=== PATIENT | male | born 1995 | race Caucasian/White ===

== ENCOUNTER 2020-03-03 19:07 | Emergency (ER) | payer MEDICAID, SELFPAY ==
[2020-03-03] VITALS (9 sets, daily range): BP systolic 97–166; BP diastolic 50–85; PULSE 74–101; RESP 15–18; TEMP 37.3; O2SAT 96–99; BMI 26.6
--- NOTE | 2020-03-03 19:47 | CT_ITS ---
PROCEDURE: CT ABDOMEN PELVIS W CON CLINICAL INDICATION: abd pain/ bloody stool COMPARISON: No exams were available for comparison TECHNIQUE: IV Contrast: 75ML OPTIRAY 350 Oral Contrast none given Axial images obtained with sagittal and coronal reformats. All CT scans at the facility use one or more dose reduction, viz: automated exposure control, ma/kV adjustment per patient size (including targeted exams where dose is matched to indication, i.e. head), or iterative reconstruction technique. FINDINGS: Lower thorax: The lower lung heredia are clear and there is no pleural fluid. Cardiac size is normal. ABDOMEN: Liver: No masses or biliary dilatation. Gallbladder: The gallbladder is partially contracted but shows no obvious stones. Pancreas: No masses or peripancreatic fluid collections. Spleen: unremarkable Adrenals: unremarkable Kidneys/ureters: The kidneys are normal in size and show symmetrical function both appearing normal. ABDOMEN & PELVIS: Stomach bowel: The stomach is markedly distended with ingested food particles. There are curious focal areas of hyperdensity particularly near the antrum of the stomach and in view the patient's history active GI bleeding cannot be excluded. There are mildly dilated fluid-filled loops of proximal and mid small bowel. The distal small bowel is more normal in caliber but is fluid-filled as well. There are moderately large amount stool in the ascending and transverse colon and in the rectum. The appendix is normal in caliber and partially air-filled. Peritoneum: No abnormal fluid collections. No obvious inflammatory changes. No free air. Lymph nodes: No enlarged lymph nodes apparent. Vasculature: No evidence of abdominal aortic aneurysm. No retroperitoneal hemorrhage evident. Bones: No acute fracture PELVIS: Reproductive: unremarkable Bladder: The urinary bladder is moderately distended with urine and appears normal, the prostate is normal in size. Appendix: Unremarkable. No distention or periappendiceal phlegmonous change. IMPRESSION: 1. Stomach markedly distended with ingested food particles with focal areas of hyperdensity suggesting the possibility of active bleeding in view the patient's history 2. Findings consistent with gastroenteritis with mildly dilated fluid-filled loops of small bowel Dictated by: Dr. Chadd Bae MD 03/04/2020 08:27 Dr. Chadd Bae MD in [facility] 03/04/2020 08:27
[2020-03-03 19:53] LABS: Basophils # 0.1 K/mm3 (0-0.2); Basophils % 0.7 % (0.1-2.0); Eosinophils # 0.3 K/mm3 (0.0-0.4); Eosinophils % 3.4 % (0.1-12.0); Hematocrit 41.5 % (42.0-52.0); Hemoglobin 15.1 g/dL (14.1-18.0); Lymphocytes # 2.8 K/mm3 (0.7-4.5); Lymphocytes % 33.6 % (10-50); Mean Corpuscular HGB Conc 36.3 g/dL (31.8-35.4); Mean Corpuscular Volume 90.9 fl (80-94); Mean Platelet Volume 9.7 fl (7.4-10.4); Monocytes # 0.9 K/mm3 (0.1-1.0); Neutrophils # 4.3 K/mm3 (1.8-7.8); Neutrophils % 51.2 % (37.0-80.0); Platelet Count 227 K/mm3 (142-424); Red Blood Count 4.56 M/mm3 (4.60-6.20); Red Cell Distribution Width 14.6 % (11.5-17.5); White Blood Count 8.4 K/mm3 (4.8-10.8)
--- NOTE | 2020-03-03 19:53 | PC.NURSE ---
patient placed in gown, and informed of plan of care
--- NOTE | 2020-03-03 19:53 | [facility].EDABDPAI ---
ED Disposition Clinical Impression: Upper GI bleed Disposition: Xfer Critical Access Hosp Condition on Discharge: Good Instructions: DI for Acute Abdomen Referrals: PCP,No [Primary Care Provider] - - Critical Care Critical Care Time: No Attestation: On , the high probability of a clinically significant, sudden or life threatening deterioration of the following system(s) required my full and direct attention, intervention and personal management. The time I documented below is in addition to time spent performing reported procedures but includes the following listed in this critical care notation. Medical Decision Making - [facility] Inquiry Pt receiving controlled substance: No Vital Signs: 03/03/20 19:08 03/03/20 19:25 03/03/20 20:31 Temperature 99.1 F 99.1 F Temperature Source Oral Oral Pulse Rate [Right Brachial] 98 H 101 H 85 Respiratory Rate 15 15 Blood Pressure [Right Arm] 166/85 H 166/85 H 129/68 Blood Pressure Mean [Right Arm] 112 112 88 Blood Pressure Source [Right Arm] Blood Pressure Position [Right Arm] 02 Sat by Pulse Oximetry 98 98 96 Oxygen Delivery Method Room Air 03/03/20 20:59 03/03/20 21:28 03/03/20 22:00 Temperature Temperature Source Pulse Rate [Right Brachial] 85 74 90 Respiratory Rate 18 Blood Pressure [Right Arm] 116/53 L 117/75 139/81 Blood Pressure Mean [Right Arm] 74 89 100 Blood Pressure Source [Right Arm] Automatic Cuff Blood Pressure Position [Right Arm] Supine 02 Sat by Pulse Oximetry 96 98 99 Oxygen Delivery Method Room Air Room Air 03/03/20 22:30 03/03/20 23:00 03/03/20 23:30 Temperature Temperature Source Pulse Rate [Right Brachial] 84 78 74 Respiratory Rate 17 18 17 Blood Pressure [Right Arm] 118/62 132/57 L 97/50 L Blood Pressure Mean [Right Arm] 80 82 65 Blood Pressure Source [Right Arm] Automatic Cuff Automatic Cuff Automatic Cuff Blood Pressure Position [Right Arm] Supine Supine Supine 02 Sat by Pulse Oximetry 99 98 98 Oxygen Delivery Method Room Air Room Air Room Air 03/04/20 00:00 03/04/20 00:30 03/04/20 01:52 Temperature Temperature Source Pulse Rate [Right Brachial] 72 72 76 Respiratory Rate 17 17 16 Blood Pressure [Right Arm] 121/61 113/55 L 97/46 L Blood Pressure Mean [Right Arm] 81 74 63 Blood Pressure Source [Right Arm] Automatic Cuff Automatic Cuff Automatic Cuff Blood Pressure Position [Right Arm] Supine Supine Supine 02 Sat by Pulse Oximetry 95 97 95 Oxygen Delivery Method Room Air Room Air Room Air 03/04/20 02:48 03/04/20 03:42 03/04/20 04:00 Temperature Temperature Source Pulse Rate [Right Brachial] 65 75 68 Respiratory Rate 16 16 17 Blood Pressure [Right Arm] 113/69 121/55 L 137/59 L Blood Pressure Mean [Right Arm] 83 77 85 Blood Pressure Source [Right Arm] Automatic Cuff Automatic Cuff Automatic Cuff Blood Pressure Position [Right Arm] Supine Supine Supine 02 Sat by Pulse Oximetry 96 96 98 Oxygen Delivery Method Room Air Room Air Room Air 03/04/20 04:30 03/04/20 05:00 03/04/20 05:30 Temperature Temperature Source Pulse Rate [Right Brachial] 62 57 L 78 Respiratory Rate 17 17 17 Blood Pressure [Right Arm] 136/67 141/52 H 141/40 H Blood Pressure Mean [Right Arm] 90 81 73 Blood Pressure Source [Right Arm] Automatic Cuff Automatic Cuff Blood Pressure Position [Right Arm] Supine Supine 02 Sat by Pulse Oximetry 97 97 98 Oxygen Delivery Method Room Air Room Air 03/04/20 06:00 03/04/20 06:30 Temperature Temperature Source Pulse Rate [Right Brachial] 72 62 Respiratory Rate 16 17 Blood Pressure [Right Arm] 157/60 H 134/56 L Blood Pressure Mean [Right Arm] 92 82 Blood Pressure Source [Right Arm] Automatic Cuff Automatic Cuff Blood Pressure Position [Right Arm] Supine Supine 02 Sat by Pulse Oximetry 97 97 Oxygen Delivery Method Room Air - Lab Data Lab Results 03/03/20 19:40: WBC 8.4, RBC 4.56 L, Hgb 15.1, Hct 41.5 L, MCV 90.9, MCH 33.0 H, MCHC 36.3 H, RDW 14.6, Plt
[2020-03-03 20:07] LABS: Alanine Aminotransferase 250 U/L (12-78); Albumin Level 4.4 g/dl (3.5-5.0); Albumin/Globulin Ratio 1.2 (1.1-1.8); Alkaline Phosphatase 87 U/L (38-126); Amylase 133 U/L (30-110); Anion Gap 13.2 mEq/L (5-15); Aspartate Amino Transferase 140 U/L (17-59); Bilirubin,Total 0.4 mg/dl (0.2-1.3); Blood Urea Nitrogen 15 mg/dl (9-20); Calcium 10.1 mg/dl (8.4-10.2); Carbon Dioxide 29 mmol/L (22.0-30.0); Chloride 103 mmol/L (98-107); Creatinine Clearance Estimated 167 mL/min (50-200); Estimated Glomerular Filt Rate 139 ml/min (>60); GFR (African American) 168 ML/MIN (>60); Globulin 3.7 g/dL (1.3-3.2); Glucose 103 mg/dl (74-100); Lipase 98 U/L (23-300); Potassium 4.2 mmoL/L (3.5-5.1); Sodium 141 mmol/L (136-145); Total Protein,Serum 8.1 g/dl (6.3-8.2)
--- NOTE | 2020-03-03 20:07 | PC.NURSE ---
ASSISTED MD WITH RECTAL EXAM
--- NOTE | 2020-03-03 20:07 | PC.NURSE ---
PATIENT TO CT AT THIS TIME
--- NOTE | 2020-03-03 20:31 | PC.NURSE ---
pat back from ct
[2020-03-03 20:35] LABS: Microscopic, Urine URINE MICROSCOPIC (MICROSCOPIC)
[2020-03-03 20:36] LABS: Appearance,Urine CLEAR (Clear); Bilirubin,Urine Negative (Negative); Blood, Urine Negative (Negative); Color,Urine YELLOW (Yellow); Glucose,Urine (UA) Negative (Negative); Ketones,Urine Negative (Negative); Leukocyte Esterase,Urine Negative (Negative); Nitrate,Urine Negative (Negative); Protein,Urine Negative (Negative); Specific Gravity, Urine 1.025 (1.005-1.030); Urobilinogen,Urine 0.2 EU/dl (0.2)
--- NOTE | 2020-03-03 20:45 | PC.NURSE ---
yoav called ct results at this time
[2020-03-03 20:56] LABS: Amorphous Sediment,Urine Trace /lpf
--- NOTE | 2020-03-03 21:09 | PC.NURSE ---
pt unable to provide stool specimen at time
--- NOTE | 2020-03-03 21:10 | PC.NURSE ---
patient updated on plan of care, no needs voiced at this time
--- NOTE | 2020-03-03 21:12 | PC.NURSE ---
[facility] called at this time
--- NOTE | 2020-03-03 21:17 | PC.NURSE ---
speaking to dr. franklin at this time.
--- NOTE | 2020-03-03 21:19 | PC.NURSE ---
[facility] on [facility]. calling [facility]
--- NOTE | 2020-03-03 21:28 | PC.NURSE ---
awaiting call back from gi at [facility]
--- NOTE | 2020-03-03 21:31 | PC.NURSE ---
Md at bedside to update patient on ct results an plan of care
--- NOTE | 2020-03-03 21:54 | PC.NURSE ---
[facility] has no beds.
--- NOTE | 2020-03-03 21:56 | PC.NURSE ---
called [facility] and was advised no beds available
--- NOTE | 2020-03-03 21:58 | PC.NURSE ---
calling [facility] at this time.
--- NOTE | 2020-03-03 22:04 | PC.NURSE ---
awaiting for GI to call back from [facility]
--- NOTE | 2020-03-03 22:10 | PC.NURSE ---
speaking to dr. Gayle at [facility] on the GI Team
--- NOTE | 2020-03-03 22:14 | PC.NURSE ---
dr. barney accepted. awaiting for bed assignment
--- NOTE | 2020-03-03 22:27 | PC.NURSE ---
assisted patient to the bathroom. updated on transfer and awaiting bed assignment from
--- NOTE | 2020-03-03 22:45 | PC.NURSE ---
calling for [facility] assignment
--- NOTE | 2020-03-03 22:48 | PC.NURSE ---
they advised patient might not have abed assignment tonight.
--- NOTE | 2020-03-03 22:58 | PC.NURSE ---
notified patient that there would not be a bed available until tomorrow per [facility]. no needs at this time
--- NOTE | 2020-03-03 23:46 | PC.NURSE ---
Pt resting at this time. Instructed to leave BP cuff on, he states it hurts his arm.
--- NOTE | 2020-03-03 23:54 | PC.NURSE ---
patient moved a more comfortable room, and given warm blankets as we are still waiting on bed assignment from . no needs voiced at this time.
--- NOTE | 2020-03-03 23:59 | PC.NURSE ---
pt requested something to drink. asked md and he advised to give him a little bit of ice chips to start with. unknown when pt will get a bed or if pt will end up with surgery
[2020-03-04] VITALS (15 sets, daily range): BP systolic 97–157; BP diastolic 40–74; PULSE 57–78; RESP 16–18; TEMP 36.7; O2SAT 95–100
--- NOTE | 2020-03-04 00:08 | PC.NURSE ---
report given to LUCIA Graves at this time
--- NOTE | 2020-03-04 00:54 | PC.NURSE ---
[facility] called and asked if we had found the patient a bed somehwere. i advised that we have not. she advised that she is trying to expedite him on getting a bed. unsure who the accepting md was. will get if they call back with a bed.
--- NOTE | 2020-03-04 06:55 | PC.NURSE ---
calling [facility] to check on bed status
[2020-03-04 06:58] LABS: Basophils % 0.7 % (0.1-2.0); Eosinophils # 0.2 K/mm3 (0.0-0.4); Eosinophils % 3.7 % (0.1-12.0); Hematocrit 38.8 % (42.0-52.0); Lymphocytes # 1.8 K/mm3 (0.7-4.5); Lymphocytes % 30.7 % (10-50); Mean Corpuscular HGB Conc 34.6 g/dL (31.8-35.4); Mean Corpuscular Hemoglobin 32.3 pg (27.0-31.2); Mean Corpuscular Volume 93.2 fl (80-94); Mean Platelet Volume 9.5 fl (7.4-10.4); Monocytes # 0.7 K/mm3 (0.1-1.0); Monocytes % 11.3 % (1.7-9.3); Neutrophils # 3.2 K/mm3 (1.8-7.8); Neutrophils % 53.6 % (37.0-80.0); Platelet Count 186 K/mm3 (142-424); Red Blood Count 4.17 M/mm3 (4.60-6.20); Red Cell Distribution Width 14.6 % (11.5-17.5); White Blood Count 5.9 K/mm3 (4.8-10.8)
[2020-03-04 06:59] LABS: Hemoglobin 13.4 g/dL (14.1-18.0)
--- NOTE | 2020-03-04 07:03 | PC.NURSE ---
[facility] is awaiting for their [facility] to get back with them.
[2020-03-04 07:16] LABS: Alanine Aminotransferase 225 U/L (12-78); Albumin Level 3.4 g/dl (3.5-5.0); Albumin/Globulin Ratio 1.1 (1.1-1.8); Alkaline Phosphatase 89 U/L (38-126); Anion Gap 7.9 mEq/L (5-15); Aspartate Amino Transferase 149 U/L (17-59); Bilirubin,Total 0.7 mg/dl (0.2-1.3); Blood Urea Nitrogen 11 mg/dl (9-20); Carbon Dioxide 28 mmol/L (22.0-30.0); Chloride 107 mmol/L (98-107); Creatinine Clearance Estimated 167 mL/min (50-200); Estimated Glomerular Filt Rate 139 ml/min (>60); GFR (African American) 168 ML/MIN (>60); Glucose 95 mg/dl (74-100); Potassium 3.9 mmoL/L (3.5-5.1); Sodium 139 mmol/L (136-145); Total Protein,Serum 6.4 g/dl (6.3-8.2)
[2020-03-04 07:17] LABS: Calcium 8.8 mg/dl (8.4-10.2)
--- NOTE | 2020-03-04 08:21 | PC.NURSE ---
St clled back for update on patient, face sheet faxed, will call back for bed assignment
--- NOTE | 2020-03-04 10:49 | PC.NURSE ---
Received phone call from [facility]. said they would have a bed, when the discharge next patient.
--- NOTE | 2020-03-04 15:30 | PC.NURSE ---
CALLED [facility] TO CHECK ON BED STATUS AND THEY ADVISED THAT THEY STILL HAD NO INFO FOR US. THEY STATED THAT THEY WILL CALL EVERY COUPLE HOURS TO UPDATE US ON DISCHARGES AND PT'S AVAILABLE BED STATUS
--- NOTE | 2020-03-04 17:00 | PC.NURSE ---
Attempted to call report to [facility], nurse is unable to take report. Olinda states to call back in 10 minutes and she will get report
--- NOTE | 2020-03-04 17:20 | PC.NURSE ---
Report called to , spoke with Olinda MYERS
== END 2020-03-04 17:50 | disposition critical access hospital (66) ==
PROVIDERS: Emergency Medicine; Emergency Provider Student in an Organized Health Care Education/Training Program
DX: K92.2 Gastrointestinal hemorrhage, unspecified (principal); F12.10 Cannabis abuse, uncomplicated; F17.210 Nicotine dependence, cigarettes, uncomplicated
CPT/HCPCS: 74177; 80053; 81001; 82150; 83690; 85025; 96365; 96367; 96375; 96376; 99284; J2405; Q9967